=== PATIENT | male | born 1940 | race Asian ===

== ENCOUNTER 2020-02-01 11:12 | Inpatient (IN) | payer MEDICARE, OTHER ==
[~2020-02-01] VITALS: Ht 160 cm; Wt 65.5 kg
[2020-02-01] MEDS ORDERED: ACETAMINOPHEN 500 MG TABLET PO ONE (11:45)
[2020-02-01 12:11] LABS: BASOPHILS % (AUTO) 0.3 % (0.0-2.0); EOSINOPHILS % (AUTO) 0 % (1.0-6.0); HEMATOCRIT 42.4 % (41-53); HEMOGLOBIN 14.4 g/dL (13.5-17.5); LYMPHOCYTES # (AUTO) 0.4 K/uL (1.0-4.8); LYMPHOCYTES % (AUTO) 5.5 % (22.0-44.0); MEAN CORPUSCULAR HEMOGLOBIN 32.4 pg (26.0-34.0); MEAN CORPUSCULAR HGB CONC 33.9 G/dL (31.0-37.0); MEAN CORPUSCULAR VOLUME 96 fL (80-100); MONOCYTES # (AUTO) 0.6 K/uL (0.1-1.0); MONOCYTES % (AUTO) 7.6 % (2.0-9.0); NEUTROPHILS % (AUTO) 86.6 % (40.0-70.0); PLATELET COUNT (AUTO) 205 K/uL (150-450); RED BLOOD CELL COUNT(AUTO) 4.43 MIL/uL (4.50-5.90); RED CELL DISTRIBUTION WIDTH 14.3 % (11.5-14.5)
[2020-02-01 12:18] LABS: ANION GAP 13 mmol/L (8-16); CALCIUM, TOTAL 8.5 mg/dL (8.8-10.5); CARBON DIOXIDE 24 mmol/L (22-29); CHLORIDE 100 mmol/L (98-107); CREATININE 1.43 mg/dL (0.60-1.30); GLOMERULAR FILTR. RATE CALC 48 mL/min (>60); GLUCOSE,RANDOM 189 mg/dL (70-110); POTASSIUM 3.6 mmol/L (3.5-5.1); SODIUM SERUM 137 mmol/L (136-145); UREA NITROGEN, BLOOD 17 mg/dL (7-18)
[2020-02-01 12:21] LABS: D-DIMER 0.4 mg/L FEU (0.00-0.50); INR 0.9 (0.9-1.1); PROTHROMBIN TIME 9.9 SEC (9.4-11.6)
[2020-02-01 12:42] LABS: ALANINE AMINOTRANSFERASE 40 U/L (12-78); ALBUMIN 3.1 g/dL (3.4-5.0); ALKALINE PHOSPHATASE 156 U/L (46-116); ASPARTATE AMINOTRANSFERASE 38 U/L (15-37); BILIRUBIN,TOTAL 0.8 mg/dL (0.1-1.0); CREATINE KINASE, TOTAL ONLY 114 U/L (39-308); FERRITIN 584 ng/mL (26-388); LACTATE DEHYDROGENASE 320 U/L (85-227); PHOSPHORUS 2.6 mg/dL (2.5-4.9); TOTAL PROTEIN, SERUM 8.5 g/dL (6.4-8.2)
[2020-02-01 13:19] LABS: LACTIC ACID 2.3 mmol/L (0.4-2.0)
[2020-02-01] MEDS ORDERED: ACETAMINOPHEN 325 MG TABLET PO PRN ×2 (13:30→14:45)
[2020-02-01] MEDS ORDERED: ONDANSETRON HCL 4 MG/2 ML VIAL IVP PRN ×2 (13:30→14:45)
[2020-02-01 13:35] LABS: ERYTHROCYTE SEDIMENTATION RATE 77 MM/HR (0-15)
[2020-02-01] MEDS ORDERED: MORPHINE SULFATE 2 MG/ML SYRINGE IVP PRN (14:45)
[2020-02-01] MEDS ORDERED: BISACODYL 10 MG RECTAL RECTAL SUPPOSITORY PR PRN (14:45)
[2020-02-01] MEDS ORDERED: HYDROCODONE/ACETAMINOPHEN 5-325 MG TABLET PO PRN (14:45)
[2020-02-01] MEDS ORDERED: MAGNESIUM HYDROXIDE SUSPENSION 30 ML UDCUP PO PRN (14:45)
[2020-02-01] MEDS ORDERED: ZOLPIDEM TARTRATE 5 MG TABLET PO PRN (14:45)
[2020-02-01] MEDS ORDERED: *CLINICAL-LEVOFLOXACIN IVPB DOSING CLINICAL ONE (14:45)
[2020-02-01] MEDS ORDERED: HEPARIN SODIUM,PORCINE 5,000 UNITS/ML VIAL SQ SCH (16:00)
[2020-02-01] MEDS ORDERED: MAGNESIUM OXIDE 400 MG TABLET PO ONE (16:15)
[2020-02-01] MEDS ORDERED: DEXTROSE 50%-WATER 25 GM/50 ML SYRINGE IVP PRN (16:15)
[2020-02-01] MEDS ORDERED: REMDESIVIR 200 MG in SODIUM CHLORIDE 0.9% 250 ML IV ONE (16:45)
[2020-02-01] MEDS ORDERED: SODIUM CHLORIDE 0.9% 500 ML IV ONE (17:38)
[2020-02-01 18:17] LABS: C-REACTIVE PROTEIN QUANT 18.28 mg/dL (0.00-0.30)
[2020-02-01] MEDS ORDERED: ATOR20TA86 PO (19:16)
[2020-02-01] MEDS ORDERED: LOSA50TA37 PO (19:16)
[2020-02-01] MEDS ORDERED: FINA-27 PO (19:16)
[2020-02-01] MEDS ORDERED: AMLO-257 PO (19:16)
[2020-02-01] MEDS ORDERED: LEVO50 PO (19:16)
[2020-02-01] MEDS ORDERED: APIX5TAB PO (19:16)
[2020-02-01] MEDS ORDERED: CALC-1105 PO (19:16)
[2020-02-01] MEDS ORDERED: CETI-450 PO (19:16)
[2020-02-01] MEDS ORDERED: GLIP5 PO (19:18)
[2020-02-01] MEDS ORDERED: METF-960 PO (19:18)
[2020-02-01] MEDS ORDERED: TAMS-13 PO (19:18)
[2020-02-01] MEDS: LEVOFLOXACIN 750 MG/D5% WATER 150 ML IV SCH (20:25)
[2020-02-01] MEDS: APIXABAN 5 MG TABLET PO SCH (20:25)
[2020-02-01] MEDS: DOCUSATE SODIUM 100 MG CAPSULE PO SCH (20:25)
[2020-02-01 20:35] VITALS: BP 132/70
[2020-02-01] MEDS ORDERED: APIXABAN 2.5 MG TABLET PO SCH (21:00)
[2020-02-01 23:05] VITALS: BP 117/67
[2020-02-01 23:14] LABS: GLUCOMETER DEV NAME(LOC) 5S.2B; GLUCOSE,POINT OF CARE 232 MG/DL (70-110)
[2020-02-02] MEDS ORDERED: DEXAMETHASONE SOD PHOS 4 MG/ML VIAL IVP ONE
[2020-02-02 04:15] VITALS: BP 125/52
[2020-02-02 06:45] LABS: GLUCOMETER DEV NAME(LOC) 5N.1B; GLUCOSE,POINT OF CARE 146 MG/DL (70-110)
[2020-02-02 06:46] LABS: GLUCOMETER DEV NAME(LOC) 5N.1B; GLUCOSE,POINT OF CARE 185 MG/DL (70-110)
[2020-02-02] MEDS: CHOLECALCIFEROL (VIT D3) 1,000 UNITS [25 MCG] TABLET PO SCH (08:01)
[2020-02-02] MEDS: FAMOTIDINE 20 MG TABLET PO SCH ×2 (08:01→20:22)
[2020-02-02] MEDS: DOCUSATE SODIUM 100 MG CAPSULE PO SCH ×2 (08:01→20:22)
[2020-02-02] MEDS: APIXABAN 5 MG TABLET PO SCH ×3 (08:01→20:42)
[2020-02-02] MEDS: DEXAMETHASONE 2 MG TABLET PO SCH (08:01)
[2020-02-02] MEDS: ZINC SULFATE 220 MG CAPSULE PO SCH ×2 (08:02→20:22)
[2020-02-02] MEDS: ASCORBIC ACID 500 MG TABLET PO SCH ×2 (08:02→20:22)
[2020-02-02 08:48] VITALS: BP 128/65
[2020-02-02] MEDS ORDERED: PANTOPRAZOLE SODIUM 40 MG DR TABLET PO SCH (09:00)
[2020-02-02] MEDS: INSULIN LISPRO 100 UNITS/ML SQ PRN ×2 (11:48→17:56)
[2020-02-02 11:57] VITALS: BP 131/73
[2020-02-02 12:01] LABS: ALANINE AMINOTRANSFERASE 33 U/L (12-78); ALBUMIN 2.3 g/dL (3.4-5.0); ALKALINE PHOSPHATASE 148 U/L (46-116); ANION GAP 10 mmol/L (8-16); ASPARTATE AMINOTRANSFERASE 31 U/L (15-37); BILIRUBIN,TOTAL 0.6 mg/dL (0.1-1.0); CALCIUM, TOTAL 7.6 mg/dL (8.8-10.5); CARBON DIOXIDE 22 mmol/L (22-29); CHLORIDE 101 mmol/L (98-107); CREATININE 1.15 mg/dL (0.60-1.30); FERRITIN 574 ng/mL (26-388); GLUCOSE,RANDOM 268 mg/dL (70-110); LACTATE DEHYDROGENASE 307 U/L (85-227); POTASSIUM 3.7 mmol/L (3.5-5.1); SODIUM SERUM 133 mmol/L (136-145); TOTAL PROTEIN, SERUM 6.8 g/dL (6.4-8.2); UREA NITROGEN, BLOOD 20 mg/dL (7-18)
[2020-02-02 12:10] LABS: LACTIC ACID 1.5 mmol/L (0.4-2.0)
[2020-02-02 12:11] LABS: GLOMERULAR FILTR. RATE CALC > 60 mL/min (>60)
[2020-02-02 16:19] VITALS: BP 130/71
[2020-02-02 20:11] VITALS: BP 122/60
[2020-02-02 20:11] LABS: GLUCOMETER DEV NAME(LOC) 5S.1; GLUCOSE,POINT OF CARE 301 MG/DL (70-110)
[2020-02-02] MEDS: REMDESIVIR 100 MG in SODIUM CHLORIDE 0.9% 250 ML IV SCH (20:22)
[2020-02-02 22:00] LABS: GLUCOMETER DEV NAME(LOC) 5S.2B; GLUCOSE,POINT OF CARE 283 MG/DL (70-110)
[2020-02-03 00:08] VITALS: BP 120/70
[2020-02-03 03:16] LABS: GLUCOMETER DEV NAME(LOC) 5N.3; GLUCOSE,POINT OF CARE 276 MG/DL (70-110)
[2020-02-03 06:33] VITALS: BP 124/74
[2020-02-03 06:36] LABS: GLUCOMETER DEV NAME(LOC) 5N.3; GLUCOSE,POINT OF CARE 314 MG/DL (70-110)
[2020-02-03 07:43] LABS: ALBUMIN 2.3 g/dL (3.4-5.0); BILIRUBIN,TOTAL 0.4 mg/dL (0.1-1.0); C-REACTIVE PROTEIN QUANT 11.4 mg/dL (0.00-0.30); CALCIUM, TOTAL 7.5 mg/dL (8.8-10.5); CREATININE 1.18 mg/dL (0.60-1.30); POTASSIUM 3.7 mmol/L (3.5-5.1); TOTAL PROTEIN, SERUM 6.5 g/dL (6.4-8.2)
[2020-02-03 08:48] VITALS: BP 103/57
[2020-02-03] MEDS: DEXAMETHASONE 2 MG TABLET PO SCH (10:19)
[2020-02-03] MEDS: CHOLECALCIFEROL (VIT D3) 1,000 UNITS [25 MCG] TABLET PO SCH (10:19)
[2020-02-03] MEDS: DOCUSATE SODIUM 100 MG CAPSULE PO SCH ×2 (10:19→20:33)
[2020-02-03] MEDS: FAMOTIDINE 20 MG TABLET PO SCH ×2 (10:19→20:33)
[2020-02-03] MEDS: ASCORBIC ACID 500 MG TABLET PO SCH ×2 (10:20→20:33)
[2020-02-03] MEDS: APIXABAN 5 MG TABLET PO SCH ×2 (10:20→20:33)
[2020-02-03] MEDS: ZINC SULFATE 220 MG CAPSULE PO SCH ×2 (10:20→20:33)
[2020-02-03 12:43] VITALS: BP 119/70
[2020-02-03] MEDS: INSULIN LISPRO 100 UNITS/ML SQ PRN ×3 (12:56→20:43)
[2020-02-03 16:01] LABS: GLUCOMETER DEV NAME(LOC) 5N.3; GLUCOSE,POINT OF CARE 362 MG/DL (70-110)
[2020-02-03 16:38] VITALS: BP 127/72
[2020-02-03] MEDS ORDERED: SODIUM CHLORIDE 0.9% 500 ML IV ONE (17:50)
[2020-02-03] MEDS: LEVOFLOXACIN 750 MG/D5% WATER 150 ML IV SCH (17:50)
[2020-02-03 20:29] VITALS: BP 115/69
[2020-02-03] MEDS: REMDESIVIR 100 MG in SODIUM CHLORIDE 0.9% 250 ML IV SCH (20:33)
[2020-02-03 20:52] LABS: GLUCOMETER DEV NAME(LOC) 5S.2B; GLUCOSE,POINT OF CARE 327 MG/DL (70-110)
[2020-02-04 00:04] VITALS: BP 127/77
[2020-02-04 05:14] VITALS: BP 126/74
[2020-02-04 06:08] LABS: GLUCOMETER DEV NAME(LOC) 5N.1B; GLUCOSE,POINT OF CARE 265 MG/DL (70-110)
[2020-02-04] MEDS: INSULIN LISPRO 100 UNITS/ML SQ PRN ×3 (06:14→18:24)
[2020-02-04 07:35] LABS: ALBUMIN 2.1 g/dL (3.4-5.0); BILIRUBIN,TOTAL 0.4 mg/dL (0.1-1.0); C-REACTIVE PROTEIN QUANT 5.36 mg/dL (0.00-0.30); CALCIUM, TOTAL 7.7 mg/dL (8.8-10.5); CREATININE 1.3 mg/dL (0.60-1.30)
[2020-02-04 08:27] VITALS: BP 133/76
[2020-02-04] MEDS: ASCORBIC ACID 500 MG TABLET PO SCH ×2 (09:00→22:09)
[2020-02-04] MEDS: CHOLECALCIFEROL (VIT D3) 1,000 UNITS [25 MCG] TABLET PO SCH (09:00)
[2020-02-04] MEDS: APIXABAN 5 MG TABLET PO SCH ×2 (09:01→22:08)
[2020-02-04] MEDS: FAMOTIDINE 20 MG TABLET PO SCH ×2 (09:01→22:08)
[2020-02-04] MEDS: DEXAMETHASONE 2 MG TABLET PO SCH (09:01)
[2020-02-04] MEDS: ZINC SULFATE 220 MG CAPSULE PO SCH ×2 (09:01→22:08)
[2020-02-04] MEDS: DOCUSATE SODIUM 100 MG CAPSULE PO SCH ×2 (09:01→22:08)
[2020-02-04 11:28] VITALS: BP 126/78
[2020-02-04 16:46] VITALS: BP 147/76
[2020-02-04 20:47] VITALS: BP 131/70
[2020-02-04] MEDS: REMDESIVIR 100 MG in SODIUM CHLORIDE 0.9% 250 ML IV SCH (22:07)
[2020-02-05 00:46] VITALS: BP 139/81
[2020-02-05 05:06] VITALS: BP 132/64
[2020-02-05] MEDS: INSULIN LISPRO 100 UNITS/ML SQ PRN ×4 (06:11→22:54)
[2020-02-05] MEDS: ASCORBIC ACID 500 MG TABLET PO SCH ×2 (08:12→20:55)
[2020-02-05] MEDS: FAMOTIDINE 20 MG TABLET PO SCH ×2 (08:12→20:55)
[2020-02-05] MEDS: ZINC SULFATE 220 MG CAPSULE PO SCH ×2 (08:12→20:55)
[2020-02-05] MEDS: CHOLECALCIFEROL (VIT D3) 1,000 UNITS [25 MCG] TABLET PO SCH (08:13)
[2020-02-05] MEDS: DEXAMETHASONE 2 MG TABLET PO SCH (08:13)
[2020-02-05] MEDS: APIXABAN 5 MG TABLET PO SCH ×2 (08:13→20:55)
[2020-02-05 08:18] VITALS: BP 133/57
[2020-02-05] MEDS: DOCUSATE SODIUM 100 MG CAPSULE PO SCH ×3 (08:18→21:00)
[2020-02-05 08:34] LABS: GLUCOMETER DEV NAME(LOC) 5N.3; GLUCOSE,POINT OF CARE 357 MG/DL (70-110)
[2020-02-05 08:48] LABS: GLUCOMETER DEV NAME(LOC) 5S.2B; GLUCOSE,POINT OF CARE 235 MG/DL (70-110)
[2020-02-05 08:49] LABS: GLUCOMETER DEV NAME(LOC) 5S.2B; GLUCOSE,POINT OF CARE 363 MG/DL (70-110)
[2020-02-05 08:50] LABS: GLUCOMETER DEV NAME(LOC) 5S.1; GLUCOSE,POINT OF CARE 258 MG/DL (70-110)
[2020-02-05 09:01] LABS: ALBUMIN 2.1 g/dL (3.4-5.0); BILIRUBIN,TOTAL 0.5 mg/dL (0.1-1.0); CALCIUM, TOTAL 7.4 mg/dL (8.8-10.5); CREATININE 1.32 mg/dL (0.60-1.30); POTASSIUM 3.8 mmol/L (3.5-5.1); TOTAL PROTEIN, SERUM 5.8 g/dL (6.4-8.2)
[2020-02-05 09:52] LABS: C-REACTIVE PROTEIN QUANT 4.52 mg/dL (0.00-0.30)
[2020-02-05 12:14] VITALS: BP 145/77
[2020-02-05 16:40] VITALS: BP 114/66
[2020-02-05] MEDS: LEVOFLOXACIN 750 MG/D5% WATER 150 ML IV SCH (18:13)
[2020-02-05 20:40] VITALS: BP 126/79
[2020-02-05] MEDS: REMDESIVIR 100 MG in SODIUM CHLORIDE 0.9% 250 ML IV SCH (20:55)
[2020-02-05 21:35] LABS: GLUCOMETER DEV NAME(LOC) 5N.3; GLUCOSE,POINT OF CARE 240 MG/DL (70-110)
[2020-02-06 01:36] VITALS: BP 137/78
[2020-02-06 05:47] LABS: GLUCOMETER DEV NAME(LOC) 5S.2B; GLUCOSE,POINT OF CARE 386 MG/DL (70-110)
[2020-02-06 05:47] LABS: GLUCOMETER DEV NAME(LOC) 5S.1; GLUCOSE,POINT OF CARE 382 MG/DL (70-110)
[2020-02-06 06:51] VITALS: BP 135/85
[2020-02-06 08:35] VITALS: BP 138/76
[2020-02-06] MEDS: FAMOTIDINE 20 MG TABLET PO SCH ×2 (08:57→20:29)
[2020-02-06] MEDS: ZINC SULFATE 220 MG CAPSULE PO SCH ×2 (08:58→20:29)
[2020-02-06] MEDS: DEXAMETHASONE 2 MG TABLET PO SCH (08:59)
[2020-02-06] MEDS: CHOLECALCIFEROL (VIT D3) 1,000 UNITS [25 MCG] TABLET PO SCH (08:59)
[2020-02-06] MEDS: ASCORBIC ACID 500 MG TABLET PO SCH ×2 (08:59→20:43)
[2020-02-06] MEDS: APIXABAN 5 MG TABLET PO SCH ×2 (08:59→20:29)
[2020-02-06] MEDS: DOCUSATE SODIUM 100 MG CAPSULE PO SCH ×2 (08:59→20:29)
[2020-02-06 11:16] VITALS: BP 138/76
[2020-02-06] MEDS: INSULIN LISPRO 100 UNITS/ML SQ PRN ×3 (12:50→22:22)
[2020-02-06 13:30] LABS: GLUCOMETER DEV NAME(LOC) 5S.1; GLUCOSE,POINT OF CARE 353 MG/DL (70-110)
[2020-02-06 16:11] VITALS: BP 130/71
[2020-02-06 20:48] VITALS: BP 113/58
[2020-02-06 21:20] LABS: GLUCOMETER DEV NAME(LOC) 5N.3; GLUCOSE,POINT OF CARE 168 MG/DL (70-110)
[2020-02-06] MEDS: INSULIN GLARGINE,HUM.REC.ANLOG 100 UNITS/ML SQ SCH (23:26)
[2020-02-07] VITALS (13 sets, daily range): BP systolic 101–136; BP diastolic 50–77
[2020-02-07 03:47] LABS: HEMATOCRIT 36.9 % (41-53); HEMOGLOBIN 12.7 g/dL (13.5-17.5); MEAN CORPUSCULAR HEMOGLOBIN 32.3 pg (26.0-34.0); MEAN CORPUSCULAR HGB CONC 34.4 G/dL (31.0-37.0); MEAN CORPUSCULAR VOLUME 94 fL (80-100); PLATELET COUNT (AUTO) 334 K/uL (150-450); RED BLOOD CELL COUNT(AUTO) 3.92 MIL/uL (4.50-5.90); RED CELL DISTRIBUTION WIDTH 14.5 % (11.5-14.5)
[2020-02-07 04:16] LABS: ALBUMIN 2.2 g/dL (3.4-5.0); BILIRUBIN,TOTAL 0.6 mg/dL (0.1-1.0); C-REACTIVE PROTEIN QUANT 9.53 mg/dL (0.00-0.30); CALCIUM, TOTAL 8.2 mg/dL (8.8-10.5); CREATININE 1.21 mg/dL (0.60-1.30); POTASSIUM 3.8 mmol/L (3.5-5.1); TOTAL PROTEIN, SERUM 6.1 g/dL (6.4-8.2)
[2020-02-07 05:04] LABS: BAND NEUTROPHILS % (MANUAL) 10 % (0-5); LYMPHOCYTES % (MANUAL) 3 % (22-44); MONOCYTES % (MANUAL) 6 % (2-9); SEGMENTED NEUTROPHILS % 81 % (40-70)
[2020-02-07 05:49] LABS: GLUCOMETER DEV NAME(LOC) 5S.2B; GLUCOSE,POINT OF CARE 424 MG/DL (70-110)
[2020-02-07] MEDS: INSULIN LISPRO 100 UNITS/ML SQ PRN ×5 (06:00→20:58)
[2020-02-07 06:41] LABS: GLUCOMETER DEV NAME(LOC) 5S.1; GLUCOSE,POINT OF CARE 146 MG/DL (70-110)
[2020-02-07 06:41] LABS: GLUCOMETER DEV NAME(LOC) 5S.1; GLUCOSE,POINT OF CARE 303 MG/DL (70-110)
[2020-02-07] MEDS: FAMOTIDINE 20 MG TABLET PO SCH ×2 (09:36→20:45)
[2020-02-07] MEDS: ZINC SULFATE 220 MG CAPSULE PO SCH ×2 (09:36→20:45)
[2020-02-07] MEDS: ASCORBIC ACID 500 MG TABLET PO SCH ×2 (09:36→20:45)
[2020-02-07] MEDS: DOCUSATE SODIUM 100 MG CAPSULE PO SCH ×2 (09:36→20:45)
[2020-02-07] MEDS: DEXAMETHASONE 2 MG TABLET PO SCH (09:37)
[2020-02-07] MEDS: CHOLECALCIFEROL (VIT D3) 1,000 UNITS [25 MCG] TABLET PO SCH (09:37)
[2020-02-07] MEDS: APIXABAN 5 MG TABLET PO SCH ×2 (09:37→20:45)
[2020-02-07] MEDS: INSULIN GLARGINE,HUM.REC.ANLOG 100 UNITS/ML SQ SCH ×2 (09:41→20:58)
[2020-02-07] MEDS ORDERED: SODIUM CHLORIDE 0.9% 250 ML IV ONE (12:47)
[2020-02-07 13:17] LABS: GLUCOMETER DEV NAME(LOC) 5S.2B; GLUCOSE,POINT OF CARE 155 MG/DL (70-110)
[2020-02-08 03:53] LABS: GLUCOMETER DEV NAME(LOC) 5S.2B; GLUCOSE,POINT OF CARE 324 MG/DL (70-110)
[2020-02-08 03:53] LABS: GLUCOMETER DEV NAME(LOC) 5S.2B; GLUCOSE,POINT OF CARE 288 MG/DL (70-110)
[2020-02-08 04:00] VITALS: BP 120/63
[2020-02-08 07:06] LABS: ANION GAP 3 mmol/L (8-16); C-REACTIVE PROTEIN QUANT 6.67 mg/dL (0.00-0.30); CALCIUM, TOTAL 8.3 mg/dL (8.8-10.5); CARBON DIOXIDE 30 mmol/L (22-29); CHLORIDE 102 mmol/L (98-107); CREATININE 1.15 mg/dL (0.60-1.30); GLUCOSE,RANDOM 106 mg/dL (70-110); POTASSIUM 4.4 mmol/L (3.5-5.1); SODIUM SERUM 135 mmol/L (136-145); UREA NITROGEN, BLOOD 22 mg/dL (7-18)
[2020-02-08 07:18] LABS: GLOMERULAR FILTR. RATE CALC > 60 mL/min (>60)
[2020-02-08 07:45] LABS: GLUCOMETER DEV NAME(LOC) 5S.2B; GLUCOSE,POINT OF CARE 99 MG/DL (70-110)
[2020-02-08 07:56] VITALS: BP 127/74
[2020-02-08] MEDS: DOCUSATE SODIUM 100 MG CAPSULE PO SCH ×2 (09:00→21:32)
[2020-02-08] MEDS: INSULIN GLARGINE,HUM.REC.ANLOG 100 UNITS/ML SQ SCH ×2 (09:00→21:31)
[2020-02-08] MEDS: ASCORBIC ACID 500 MG TABLET PO SCH ×2 (09:13→21:32)
[2020-02-08] MEDS: APIXABAN 5 MG TABLET PO SCH ×2 (09:13→21:32)
[2020-02-08] MEDS: CHOLECALCIFEROL (VIT D3) 1,000 UNITS [25 MCG] TABLET PO SCH (09:13)
[2020-02-08] MEDS: FAMOTIDINE 20 MG TABLET PO SCH ×2 (09:13→21:32)
[2020-02-08] MEDS: DEXAMETHASONE 2 MG TABLET PO SCH (09:14)
[2020-02-08] MEDS: ZINC SULFATE 220 MG CAPSULE PO SCH ×2 (09:14→21:32)
[2020-02-08] MEDS: INSULIN LISPRO 100 UNITS/ML SQ PRN ×3 (11:44→21:32)
[2020-02-08 12:07] VITALS: BP 128/68
[2020-02-08] MEDS ORDERED: SODIUM CHLORIDE 0.9% 250 ML IV ONE (15:31)
[2020-02-08 16:13] VITALS: BP 118/62
[2020-02-08 16:57] LABS: GLUCOMETER DEV NAME(LOC) 5S.1; GLUCOSE,POINT OF CARE 296 MG/DL (70-110)
[2020-02-08 16:57] LABS: GLUCOMETER DEV NAME(LOC) 5S.1; GLUCOSE,POINT OF CARE 273 MG/DL (70-110)
[2020-02-08 20:20] VITALS: BP 117/66
[2020-02-08 23:42] VITALS: BP 121/64
[2020-02-09] VITALS (11 sets, daily range): BP systolic 112–132; BP diastolic 50–72
[2020-02-09 06:40] LABS: GLUCOMETER DEV NAME(LOC) 5S.1; GLUCOSE,POINT OF CARE 109 MG/DL (70-110)
[2020-02-09 07:07] LABS: GLUCOMETER DEV NAME(LOC) 5N.3; GLUCOSE,POINT OF CARE 300 MG/DL (70-110)
[2020-02-09] MEDS: DEXAMETHASONE 2 MG TABLET PO SCH (09:37)
[2020-02-09] MEDS: CHOLECALCIFEROL (VIT D3) 1,000 UNITS [25 MCG] TABLET PO SCH (09:37)
[2020-02-09] MEDS: APIXABAN 5 MG TABLET PO SCH ×2 (09:37→20:47)
[2020-02-09] MEDS: DOCUSATE SODIUM 100 MG CAPSULE PO SCH ×2 (09:37→20:47)
[2020-02-09] MEDS: INSULIN GLARGINE,HUM.REC.ANLOG 100 UNITS/ML SQ SCH ×2 (09:39→22:28)
[2020-02-09] MEDS: FAMOTIDINE 20 MG TABLET PO SCH ×2 (11:17→20:47)
[2020-02-09] MEDS: ASCORBIC ACID 500 MG TABLET PO SCH ×2 (11:17→20:47)
[2020-02-09] MEDS: ZINC SULFATE 220 MG CAPSULE PO SCH ×2 (11:17→20:47)
[2020-02-09] MEDS: INSULIN LISPRO 100 UNITS/ML SQ PRN ×3 (13:08→22:29)
[2020-02-10] VITALS (8 sets, daily range): BP systolic 116–142; BP diastolic 62–75
[2020-02-10 01:00] LABS: GLUCOMETER DEV NAME(LOC) 5S.2B; GLUCOSE,POINT OF CARE 291 MG/DL (70-110)
[2020-02-10 03:02] LABS: GLUCOMETER DEV NAME(LOC) 5N.1B; GLUCOSE,POINT OF CARE 345 MG/DL (70-110)
[2020-02-10 03:02] LABS: GLUCOMETER DEV NAME(LOC) 5S.1; GLUCOSE,POINT OF CARE 315 MG/DL (70-110)
[2020-02-10] MEDS: INSULIN LISPRO 100 UNITS/ML SQ PRN ×4 (06:15→20:46)
[2020-02-10 06:45] LABS: GLUCOMETER DEV NAME(LOC) 5N.1B; GLUCOSE,POINT OF CARE 78 MG/DL (70-110)
[2020-02-10] MEDS: DEXAMETHASONE 2 MG TABLET PO SCH (08:58)
[2020-02-10] MEDS: ZINC SULFATE 220 MG CAPSULE PO SCH ×2 (08:58→20:31)
[2020-02-10] MEDS: APIXABAN 5 MG TABLET PO SCH ×2 (08:58→20:31)
[2020-02-10] MEDS: CHOLECALCIFEROL (VIT D3) 1,000 UNITS [25 MCG] TABLET PO SCH (08:58)
[2020-02-10] MEDS: ASCORBIC ACID 500 MG TABLET PO SCH ×2 (08:58→20:31)
[2020-02-10] MEDS: FAMOTIDINE 20 MG TABLET PO SCH ×2 (08:58→20:31)
[2020-02-10] MEDS: DOCUSATE SODIUM 100 MG CAPSULE PO SCH ×2 (08:58→20:31)
[2020-02-10] MEDS: INSULIN GLARGINE,HUM.REC.ANLOG 100 UNITS/ML SQ SCH ×2 (09:00→20:33)
[2020-02-10 15:36] LABS: BASOPHILS % (AUTO) 0.1 % (0.0-2.0); EOSINOPHILS % (AUTO) 0.3 % (1.0-6.0); HEMATOCRIT 37.5 % (41-53); HEMOGLOBIN 12.6 g/dL (13.5-17.5); LYMPHOCYTES # (AUTO) 0.2 K/uL (1.0-4.8); LYMPHOCYTES % (AUTO) 2.4 % (22.0-44.0); MEAN CORPUSCULAR HGB CONC 33.7 G/dL (31.0-37.0); MEAN CORPUSCULAR VOLUME 95 fL (80-100); MONOCYTES # (AUTO) 0.4 K/uL (0.1-1.0); MONOCYTES % (AUTO) 3.8 % (2.0-9.0); NEUTROPHILS # (AUTO) 8.6 K/uL (1.8-7.7); PLATELET COUNT (AUTO) 320 K/uL (150-450); RED BLOOD CELL COUNT(AUTO) 3.94 MIL/uL (4.50-5.90); RED CELL DISTRIBUTION WIDTH 14.8 % (11.5-14.5)
[2020-02-10 15:43] LABS: NEUTROPHILS % (AUTO) 93.4 % (40.0-70.0)
[2020-02-10 15:46] LABS: CALCIUM, TOTAL 7.9 mg/dL (8.8-10.5); CREATININE 1.39 mg/dL (0.60-1.30); POTASSIUM 4.3 mmol/L (3.5-5.1)
[2020-02-10 15:51] LABS: ALBUMIN 2.2 g/dL (3.4-5.0); BILIRUBIN,TOTAL 0.5 mg/dL (0.1-1.0); TOTAL PROTEIN, SERUM 6.1 g/dL (6.4-8.2)
[2020-02-10 20:11] LABS: GLUCOMETER DEV NAME(LOC) 5S.2B; GLUCOSE,POINT OF CARE 335 MG/DL (70-110)
[2020-02-10 20:11] LABS: GLUCOMETER DEV NAME(LOC) 5N.3; GLUCOSE,POINT OF CARE 291 MG/DL (70-110)
[2020-02-11 02:19] LABS: GLUCOMETER DEV NAME(LOC) 5S.2B; GLUCOSE,POINT OF CARE 326 MG/DL (70-110)
[2020-02-11 04:32] VITALS: BP 125/72
[2020-02-11] MEDS: INSULIN LISPRO 100 UNITS/ML SQ PRN ×4 (06:49→21:22)
[2020-02-11 07:09] LABS: BASOPHILS % (AUTO) 0.1 % (0.0-2.0); EOSINOPHILS % (AUTO) 0.4 % (1.0-6.0); HEMATOCRIT 38.1 % (41-53); HEMOGLOBIN 12.8 g/dL (13.5-17.5); LYMPHOCYTES # (AUTO) 0.5 K/uL (1.0-4.8); LYMPHOCYTES % (AUTO) 7.4 % (22.0-44.0); MEAN CORPUSCULAR HEMOGLOBIN 31.9 pg (26.0-34.0); MEAN CORPUSCULAR HGB CONC 33.7 G/dL (31.0-37.0); MEAN CORPUSCULAR VOLUME 95 fL (80-100); MONOCYTES # (AUTO) 0.7 K/uL (0.1-1.0); MONOCYTES % (AUTO) 9.5 % (2.0-9.0); NEUTROPHILS # (AUTO) 5.7 K/uL (1.8-7.7); NEUTROPHILS % (AUTO) 82.6 % (40.0-70.0); PLATELET COUNT (AUTO) 331 K/uL (150-450); RED BLOOD CELL COUNT(AUTO) 4.02 MIL/uL (4.50-5.90); RED CELL DISTRIBUTION WIDTH 14.5 % (11.5-14.5)
[2020-02-11 07:34] LABS: ALBUMIN 2.2 g/dL (3.4-5.0); BILIRUBIN,TOTAL 0.6 mg/dL (0.1-1.0); C-REACTIVE PROTEIN QUANT 1.54 mg/dL (0.00-0.30); CALCIUM, TOTAL 8.1 mg/dL (8.8-10.5); CREATININE 1.25 mg/dL (0.60-1.30); POTASSIUM 4.7 mmol/L (3.5-5.1); TOTAL PROTEIN, SERUM 6.2 g/dL (6.4-8.2)
[2020-02-11 08:15] VITALS: BP 128/73
[2020-02-11] MEDS: DOCUSATE SODIUM 100 MG CAPSULE PO SCH ×2 (08:37→21:17)
[2020-02-11] MEDS: APIXABAN 5 MG TABLET PO SCH ×2 (08:38→21:17)
[2020-02-11] MEDS: CHOLECALCIFEROL (VIT D3) 1,000 UNITS [25 MCG] TABLET PO SCH (08:38)
[2020-02-11] MEDS: ASCORBIC ACID 500 MG TABLET PO SCH ×2 (08:38→21:17)
[2020-02-11] MEDS: ZINC SULFATE 220 MG CAPSULE PO SCH ×2 (08:38→21:17)
[2020-02-11] MEDS: FAMOTIDINE 20 MG TABLET PO SCH ×2 (08:38→21:17)
[2020-02-11] MEDS: DEXAMETHASONE 2 MG TABLET PO SCH (08:38)
[2020-02-11] MEDS: INSULIN GLARGINE,HUM.REC.ANLOG 100 UNITS/ML SQ SCH ×2 (08:45→21:22)
[2020-02-11 11:14] VITALS: BP 121/73
[2020-02-11 16:08] VITALS: BP 127/72
[2020-02-11 21:19] VITALS: BP 132/78
[2020-02-12 00:33] LABS: GLUCOMETER DEV NAME(LOC) 5N.3; GLUCOSE,POINT OF CARE 324 MG/DL (70-110)
[2020-02-12 00:48] VITALS: BP 126/70
[2020-02-12 00:51] LABS: GLUCOMETER DEV NAME(LOC) 5S.2B; GLUCOSE,POINT OF CARE 123 MG/DL (70-110)
[2020-02-12 00:51] LABS: GLUCOMETER DEV NAME(LOC) 5S.2B; GLUCOSE,POINT OF CARE 272 MG/DL (70-110)
[2020-02-12 00:52] LABS: GLUCOMETER DEV NAME(LOC) 5S.2B; GLUCOSE,POINT OF CARE 400 MG/DL (70-110)
[2020-02-12 05:10] VITALS: BP 120/68
[2020-02-12 06:19] LABS: BASOPHILS % (AUTO) 0.3 % (0.0-2.0); EOSINOPHILS % (AUTO) 0.4 % (1.0-6.0); HEMATOCRIT 37.5 % (41-53); HEMOGLOBIN 12.6 g/dL (13.5-17.5); LYMPHOCYTES # (AUTO) 0.5 K/uL (1.0-4.8); MEAN CORPUSCULAR HEMOGLOBIN 31.8 pg (26.0-34.0); MEAN CORPUSCULAR HGB CONC 33.7 G/dL (31.0-37.0); MEAN CORPUSCULAR VOLUME 95 fL (80-100); MONOCYTES # (AUTO) 0.7 K/uL (0.1-1.0); MONOCYTES % (AUTO) 9.4 % (2.0-9.0); NEUTROPHILS # (AUTO) 6.2 K/uL (1.8-7.7); NEUTROPHILS % (AUTO) 82.9 % (40.0-70.0); PLATELET COUNT (AUTO) 317 K/uL (150-450); RED BLOOD CELL COUNT(AUTO) 3.96 MIL/uL (4.50-5.90); RED CELL DISTRIBUTION WIDTH 14.6 % (11.5-14.5)
[2020-02-12 07:11] LABS: GLUCOMETER DEV NAME(LOC) 5S.2B; GLUCOSE,POINT OF CARE 86 MG/DL (70-110)
[2020-02-12 07:14] LABS: ALANINE AMINOTRANSFERASE 25 U/L (12-78); ALKALINE PHOSPHATASE 74 U/L (46-116); ANION GAP 6 mmol/L (8-16); ASPARTATE AMINOTRANSFERASE 15 U/L (15-37); BILIRUBIN,TOTAL 0.5 mg/dL (0.1-1.0); C-REACTIVE PROTEIN QUANT 0.71 mg/dL (0.00-0.30); CALCIUM, TOTAL 8.1 mg/dL (8.8-10.5); CARBON DIOXIDE 28 mmol/L (22-29); CHLORIDE 101 mmol/L (98-107); CREATININE 1.01 mg/dL (0.60-1.30); GLUCOSE,RANDOM 80 mg/dL (70-110); POTASSIUM 3.8 mmol/L (3.5-5.1); SODIUM SERUM 135 mmol/L (136-145); TOTAL PROTEIN, SERUM 5.9 g/dL (6.4-8.2); UREA NITROGEN, BLOOD 24 mg/dL (7-18)
[2020-02-12 07:15] LABS: GLOMERULAR FILTR. RATE CALC > 60 mL/min (>60)
[2020-02-12] MEDS: ZINC SULFATE 220 MG CAPSULE PO SCH ×2 (08:47→20:47)
[2020-02-12] MEDS: CHOLECALCIFEROL (VIT D3) 1,000 UNITS [25 MCG] TABLET PO SCH (08:47)
[2020-02-12] MEDS: ASCORBIC ACID 500 MG TABLET PO SCH ×2 (08:47→20:47)
[2020-02-12] MEDS: FAMOTIDINE 20 MG TABLET PO SCH ×2 (08:47→20:46)
[2020-02-12] MEDS: APIXABAN 5 MG TABLET PO SCH ×2 (08:47→20:47)
[2020-02-12] MEDS: DOCUSATE SODIUM 100 MG CAPSULE PO SCH ×2 (08:47→20:47)
[2020-02-12] MEDS: INSULIN GLARGINE,HUM.REC.ANLOG 100 UNITS/ML SQ SCH ×2 (08:56→20:57)
[2020-02-12] MEDS ORDERED: DEXAMETHASONE 4 MG TABLET PO SCH (09:00)
[2020-02-12 09:15] VITALS: BP 136/73
[2020-02-12] MEDS: INSULIN LISPRO 100 UNITS/ML SQ PRN ×3 (11:29→20:57)
[2020-02-12 12:30] VITALS: BP 133/78
[2020-02-12 16:17] VITALS: BP 135/72
[2020-02-12 17:17] LABS: GLUCOMETER DEV NAME(LOC) 5S.2B; GLUCOSE,POINT OF CARE 234 MG/DL (70-110)
[2020-02-12 20:06] VITALS: BP 128/76
[2020-02-13 01:10] VITALS: BP 125/70
[2020-02-13 04:10] LABS: GLUCOMETER DEV NAME(LOC) 5S.2B; GLUCOSE,POINT OF CARE 391 MG/DL (70-110)
[2020-02-13 04:42] VITALS: BP 146/73
[2020-02-13 06:31] LABS: BASOPHILS % (AUTO) 0.3 % (0.0-2.0); EOSINOPHILS % (AUTO) 0.2 % (1.0-6.0); HEMATOCRIT 37.9 % (41-53); HEMOGLOBIN 12.8 g/dL (13.5-17.5); LYMPHOCYTES # (AUTO) 0.5 K/uL (1.0-4.8); LYMPHOCYTES % (AUTO) 5.7 % (22.0-44.0); MEAN CORPUSCULAR HEMOGLOBIN 31.8 pg (26.0-34.0); MEAN CORPUSCULAR HGB CONC 33.7 G/dL (31.0-37.0); MEAN CORPUSCULAR VOLUME 94 fL (80-100); MONOCYTES # (AUTO) 0.8 K/uL (0.1-1.0); NEUTROPHILS # (AUTO) 7.5 K/uL (1.8-7.7); NEUTROPHILS % (AUTO) 84.8 % (40.0-70.0); PLATELET COUNT (AUTO) 305 K/uL (150-450); RED BLOOD CELL COUNT(AUTO) 4.02 MIL/uL (4.50-5.90); RED CELL DISTRIBUTION WIDTH 14.5 % (11.5-14.5)
[2020-02-13 07:15] LABS: ALANINE AMINOTRANSFERASE 31 U/L (12-78); ALKALINE PHOSPHATASE 74 U/L (46-116); ANION GAP 3 mmol/L (8-16); ASPARTATE AMINOTRANSFERASE 16 U/L (15-37); BILIRUBIN,TOTAL 0.5 mg/dL (0.1-1.0); CALCIUM, TOTAL 7.9 mg/dL (8.8-10.5); CARBON DIOXIDE 29 mmol/L (22-29); CHLORIDE 102 mmol/L (98-107); CREATININE 0.98 mg/dL (0.60-1.30); GLUCOSE,RANDOM 70 mg/dL (70-110); POTASSIUM 3.6 mmol/L (3.5-5.1); SODIUM SERUM 134 mmol/L (136-145); UREA NITROGEN, BLOOD 28 mg/dL (7-18)
[2020-02-13 07:16] LABS: ALBUMIN 2.2 g/dL (3.4-5.0); C-REACTIVE PROTEIN QUANT 0.36 mg/dL (0.00-0.30); TOTAL PROTEIN, SERUM 5.9 g/dL (6.4-8.2)
[2020-02-13 07:17] LABS: GLOMERULAR FILTR. RATE CALC > 60 mL/min (>60)
[2020-02-13] MEDS: DOCUSATE SODIUM 100 MG CAPSULE PO SCH (08:34)
[2020-02-13] MEDS: ZINC SULFATE 220 MG CAPSULE PO SCH (08:35)
[2020-02-13] MEDS: APIXABAN 5 MG TABLET PO SCH (08:35)
[2020-02-13] MEDS: ASCORBIC ACID 500 MG TABLET PO SCH (08:35)
[2020-02-13] MEDS: CHOLECALCIFEROL (VIT D3) 1,000 UNITS [25 MCG] TABLET PO SCH (08:35)
[2020-02-13] MEDS: FAMOTIDINE 20 MG TABLET PO SCH (08:35)
[2020-02-13] MEDS: INSULIN GLARGINE,HUM.REC.ANLOG 100 UNITS/ML SQ SCH (08:37)
[2020-02-13 08:50] VITALS: BP 154/76
[2020-02-13] MEDS ORDERED: DEXAMETHASONE 2 MG TABLET PO SCH (09:00)
[2020-02-13 11:16] VITALS: BP 136/73
[2020-02-13] MEDS: INSULIN LISPRO 100 UNITS/ML SQ PRN (11:57)
[2020-02-13 12:41] LABS: GLUCOMETER DEV NAME(LOC) 5N.3; GLUCOSE,POINT OF CARE 336 MG/DL (70-110)
[2020-02-13 12:42] LABS: GLUCOMETER DEV NAME(LOC) 5N.3; GLUCOSE,POINT OF CARE 351 MG/DL (70-110)
[2020-02-13 15:46] VITALS: BP 134/72
[2020-02-13 15:52] LABS: GLUCOMETER DEV NAME(LOC) 5S.2B; GLUCOSE,POINT OF CARE 73 MG/DL (70-110)
[2020-02-13] MEDS ORDERED: ASCO500 PO (16:29)
[2020-02-13] MEDS ORDERED: CHOL100018 PO (16:29)
[2020-02-13] MEDS ORDERED: ZINC220C14 PO (16:29)
== END 2020-02-13 16:50 | disposition home health service (06) | DRG 177 ==
LOC: EMS 11:14 → 5N 14:39
PROVIDERS: ADMIT Internal Medicine; ATTEND Internal Medicine
PROC: XW033E5 Introduction of Remdesivir Anti-infective into Peripheral Vein, Percutaneous Approach, New Technology Group 5 (ICD-10-PCS; principal; 2020-02-01)
PROC: XW13325 Transfusion of Convalescent Plasma (Nonautologous) into Peripheral Vein, Percutaneous Approach, New Technology Group 5 (ICD-10-PCS; 2020-02-07)
DX: U07.1 COVID-19 (principal); J12.89 Other viral pneumonia; J96.01 Acute respiratory failure with hypoxia; N17.9 Acute kidney failure, unspecified; E83.42 Hypomagnesemia; E11.22 Type 2 diabetes mellitus with diabetic chronic kidney disease; I12.9 Hypertensive chronic kidney disease with stage 1 through stage 4 chronic kidney disease, or unspecified chronic kidney disease; I48.0 Paroxysmal atrial fibrillation; N18.9 Chronic kidney disease, unspecified; R55 Syncope and collapse; R79.89 Other specified abnormal findings of blood chemistry; Z79.01 Long term (current) use of anticoagulants; Z91.041 Radiographic dye allergy status; Z79.899 Other long term (current) drug therapy
CPT/HCPCS: 82728; 83605; 83615; 83735; 84100; 84145; 85379; 85384; 85651; 86140; 86900; 86901; 86927; 87040; 87070; 93005; 99291; J1100; J1644; J1815; J1956; J7040; J7050; J8540; 36415-L1; 36415-TC; 71045-TC